=== PATIENT | female | born 1985 | race Caucasian/White ===

== ENCOUNTER 2020-05-07 06:00 | Day surgery (SDC) | payer OTHER ==
[~2020-05-07 06:00] MED LIST: BRAIN MIGHT-DH1 EACH PO; CALCIUM 600 MG1 EACH PO; OPTIMAL D350000 UNIT PO; SYNTHROID200 MCG PO
== END 2020-05-07 10:35 | disposition home or self-care (01) ==
LOC: AMB-ENDOS 06:00
PROVIDERS: ATTEND Surgery
DX: K29.50 Unspecified chronic gastritis without bleeding (principal); K44.9 Diaphragmatic hernia without obstruction or gangrene; Z20.828 Contact with and (suspected) exposure to other viral communicable diseases